=== PATIENT | male | born 1985 | race Caucasian/White ===

== ENCOUNTER 2023-03-11 21:04 | Observation (INO) | payer BC ==
[~2023-03-11 21:04] MED LIST: Iopamidol-370 76% 500 ML MDV (1 ML CHARGE) ONE
[2023-03-11] MEDS ORDERED: fentaNYL 50 mcg/mL 1 mL Vial ONE (21:07)
[2023-03-11 21:40] LABS: #Basophils 0.1 thou/uL (0.0-0.2); #Eosinphils 0.1 thou/uL (0.0-0.7); #Monocytes 0.9 thou/uL (0.11-0.59); #Neutrophils 5.8 thou/uL (1.40-6.50); %Basophils 0.9 % (0.0-1.0); %Eosinophils 0.5 % (0.0-10.0); %Lymphocytes 35.6 % (21.0-51.0); %Monocytes 7.7 % (0.0-10.0); %Neutrophils 52.1 % (42.0-75.0); Hematocrit 44.9 % (42.0-52.0); Hemoglobin 14.5 g/dL (14.0-18.0); Mean Corpuscular HGB CONC 32.3 g/dL (32.0-36.0); Mean Corpuscular Hemoglobin 31.3 pg (27.0-31.0); Mean Platelet Volume 9.8 fL (7.4-10.4); Platelet Count 261 10x3/uL (130-400); RBC Distribution Width 13.3 % (11.5-14.5); Red Blood Cell (RBC) Count 4.63 mill/uL (4.70-6.10); White Blood Cell (WBC) Count 11.1 10x3/uL (4.8-10.8)
[2023-03-11] MEDS ORDERED: Morphine 4 MG/ML VIAL ONE (21:45)
[2023-03-11 22:07] LABS: ALT (SGPT) 81 U/L (8-55); AST (SGOT) 101 U/L (5-34); Albumin 4.3 g/dL (3.5-5.0); Alkaline Phosphatase 67 U/L (40-110); Anion Gap 15 mmol/L (10-20); BUN (Urea Nitrogen) 8 mg/dL (8.9-20.6); Bilirubin, Total 0.7 mg/dL (0.2-1.2); Calc. Creatinine Clearance 0 mL/min (70-130); Calcium 8.8 mg/dL (7.8-10.44); Carbon Dioxide 20 mmol/L (22-29); Chloride 104 mmol/L (98-107); Estimated GFR 103; Globulin 2.7 g/dL (2.4-3.5); Glucose 103 mg/dL (70-105); Potassium 3.8 mmol/L (3.5-5.1); Sodium 135 mmol/L (136-145)
[2023-03-11 23:09] LABS: Acetaminophen Less than 10 mcg/mL (10.0-30.0); Alcohol 83.2 mg/dL (Less than 10); Salicylate Less than 8.0 mg/dL (15.0-30.0)
[2023-03-11] MEDS ORDERED: Dextrose 50% Abboject 50 ML SYRINGE SLOW IVP PRN (23:23)
[2023-03-11] MEDS ORDERED: Morphine 4 MG/ML VIAL SLOW IVP PRN (23:23)
[2023-03-11] MEDS ORDERED: hydrALAZINE 20 MG/ML VIAL SLOW IVP PRN (23:23)
[2023-03-11] MEDS ORDERED: Glucagon 1 MG/ML KIT IM PRN (23:23)
[2023-03-11] MEDS ORDERED: Dextrose 5% in Water 1,000 ML IV PRN (23:23)
[2023-03-11] MEDS ORDERED: Ondansetron PF 4 MG/2 ML Vial IVP PRN (23:23)
[2023-03-11] MEDS ORDERED: Ipratropium/Albuterol 3 ML NEB NEB PRN (23:23)
[2023-03-11] MEDS ORDERED: Ondansetron ODT 4 MG TAB PO PRN (23:23)
[2023-03-11] MEDS ORDERED: Cyclobenzaprine 10 MG TAB PO PRN (23:26)
[2023-03-11] MEDS ORDERED: Acetaminophen 500 MG TAB ONE (23:29)
[2023-03-11] MEDS ORDERED: traMADol HCl 50 MG TAB ONE (23:29)
[2023-03-11] MEDS ORDERED: Cyclobenzaprine 10 MG TAB ONE (23:29)
[2023-03-11] MEDS ORDERED: Sodium Chloride 0.9% 1,000 ML IV SCH (23:59)
[2023-03-12] MEDS ORDERED: Boostrix 0.5 ML (Tdap) VIAL (>/=7 yrs of age) ONE (00:09)
[2023-03-12] MEDS: traMADol HCl 50 MG TAB PO SCH ×4 (00:24→19:24)
[2023-03-12] MEDS: Acetaminophen 325 MG TAB PO SCH ×2 (00:24→05:07)
[2023-03-12 02:05] VITALS: BMI 28.1
[2023-03-12] MEDS: Morphine 2 MG/ML VIAL SLOW IVP PRN ×2 (02:26→09:39)
[2023-03-12 07:12] LABS: #Monocytes 0.6 thou/uL (0.11-0.59); #Neutrophils 6.7 thou/uL (1.40-6.50); %Basophils 0.3 % (0.0-1.0); %Eosinophils 0.1 % (0.0-10.0); %Lymphocytes 15.7 % (21.0-51.0); %Monocytes 6.8 % (0.0-10.0); %Neutrophils 76.4 % (42.0-75.0); Hematocrit 40.4 % (42.0-52.0); Hemoglobin 13.2 g/dL (14.0-18.0); Mean Corpuscular HGB CONC 32.7 g/dL (32.0-36.0); Mean Corpuscular Hemoglobin 31.3 pg (27.0-31.0); Mean Corpuscular Volume 95.7 fl (78.0-98.0); Mean Platelet Volume 9.9 fL (7.4-10.4); Platelet Count 211 10x3/uL (130-400); RBC Distribution Width 13.4 % (11.5-14.5); Red Blood Cell (RBC) Count 4.22 mill/uL (4.70-6.10); White Blood Cell (WBC) Count 8.7 10x3/uL (4.8-10.8)
[2023-03-12 07:35] LABS: Anion Gap 11 mmol/L (10-20); BUN (Urea Nitrogen) 9 mg/dL (8.9-20.6); Calc. Creatinine Clearance 157 mL/min (70-130); Calcium 8.4 mg/dL (7.8-10.44); Carbon Dioxide 21 mmol/L (22-29); Chloride 104 mmol/L (98-107); Estimated GFR 116; Glucose 93 mg/dL (70-105); Magnesium 1.5 mg/dL (1.6-2.6); Phosphorus 4.1 mg/dL (2.3-4.7); Potassium 4.3 mmol/L (3.5-5.1); Sodium 132 mmol/L (136-145)
[2023-03-12] MEDS: Famotidine 20 MG TAB PO SCH ×2 (09:40→20:36)
[2023-03-12] MEDS: Gabapentin 300 MG CAP PO SCH ×3 (09:40→20:36)
[2023-03-12] MEDS: Senokot S 8.6-50 MG TAB PO SCH ×2 (09:40→20:35)
[2023-03-12] MEDS: Polyethylene Glycol 3350 17 GM Packet PO SCH (09:41)
[2023-03-12] MEDS ORDERED: Acetaminophen 325 MG TAB PO SCH (11:30)
[2023-03-12] MEDS ORDERED: Ketorolac Tromethamine 30 MG/ML VIAL IVP SCH (11:45)
[2023-03-12] MEDS: Acetaminophen 500 MG TAB PO SCH ×2 (12:57→19:24)
[2023-03-12] MEDS ORDERED: Magnesium 2 GM/50 ML(in water) 4 GM in Premix Bag 1 BAG IVPB SCH (14:00)
[2023-03-12] MEDS: Ketorolac Tromethamine 30 MG/ML VIAL IVP SCH (19:26)
[2023-03-13] MEDS: Acetaminophen 500 MG TAB PO SCH ×3 (00:08→11:33)
[2023-03-13] MEDS: traMADol HCl 50 MG TAB PO SCH ×3 (00:08→11:33)
[2023-03-13] MEDS: Ketorolac Tromethamine 30 MG/ML VIAL IVP SCH ×2 (00:08→06:03)
[2023-03-13 07:08] LABS: #Basophils 0.1 thou/uL (0.0-0.2); #Eosinphils 0.1 thou/uL (0.0-0.7); #Monocytes 0.5 thou/uL (0.11-0.59); %Basophils 0.9 % (0.0-1.0); %Eosinophils 1.6 % (0.0-10.0); %Lymphocytes 15.9 % (21.0-51.0); %Monocytes 6.5 % (0.0-10.0); %Neutrophils 74.8 % (42.0-75.0); Hematocrit 41.1 % (42.0-52.0); Hemoglobin 13.4 g/dL (14.0-18.0); Mean Corpuscular HGB CONC 32.6 g/dL (32.0-36.0); Mean Corpuscular Hemoglobin 31.8 pg (27.0-31.0); Mean Corpuscular Volume 97.4 fl (78.0-98.0); Mean Platelet Volume 9.6 fL (7.4-10.4); Platelet Count 160 10x3/uL (130-400); RBC Distribution Width 13.1 % (11.5-14.5); Red Blood Cell (RBC) Count 4.22 mill/uL (4.70-6.10)
[2023-03-13 08:09] LABS: Anion Gap 12 mmol/L (10-20); BUN (Urea Nitrogen) 8 mg/dL (8.9-20.6); Calc. Creatinine Clearance 153 mL/min (70-130); Calcium 8.8 mg/dL (7.8-10.44); Carbon Dioxide 22 mmol/L (22-29); Chloride 101 mmol/L (98-107); Estimated GFR 116; Glucose 95 mg/dL (70-105); Magnesium 1.8 mg/dL (1.6-2.6); Phosphorus 2.9 mg/dL (2.3-4.7); Sodium 131 mmol/L (136-145)
[2023-03-13 08:52] VITALS: BP 126/84; TEMP 98.4
[2023-03-13] MEDS: Senokot S 8.6-50 MG TAB PO SCH (09:40)
[2023-03-13] MEDS: Gabapentin 300 MG CAP PO SCH (09:40)
[2023-03-13] MEDS: Polyethylene Glycol 3350 17 GM Packet PO SCH (09:40)
[2023-03-13] MEDS: Famotidine 20 MG TAB PO SCH (09:41)
[2023-03-13] MEDS ORDERED: Ibuprofen 200 MG TAB PO PRN (12:00)
== END 2023-03-13 14:25 | disposition home or self-care (01) ==
LOC: ERS 21:04 → SURG B 23:23
PROVIDERS: ADMIT Specialist; ATTEND Specialist
DX: S32.011A Stable burst fracture of first lumbar vertebra, initial encounter for closed fracture (principal); S36.116A Major laceration of liver, initial encounter; S27.322A Contusion of lung, bilateral, initial encounter; J98.4 Other disorders of lung; V49.40XA Driver injured in collision with unspecified motor vehicles in traffic accident, initial encounter
CPT/HCPCS: 36415; 70450; 71045; 71260; 72125; 74177; 80048; 80053; 80307; 83735; 84100; 85025; 86850; 86900; 86901; 90471; 90715; 93005; 96361; 96374; 96375; 96376; G0378; G0390; J1650; J1885; J2270; J2272; J3010; J3475; J7050; Q9967

== ENCOUNTER 2024-04-20 10:19 | Emergency (ER) | payer BC ==
[2024-04-20 10:44] LABS: #Basophils 0.07 10x3/uL (0.0-0.2); %Basophils 1.1 % (0.0-1.0); %Eosinophils 2.8 % (0.0-10.0); %Lymphocytes 35.6 % (21.0-51.0); %Monocytes 8.6 % (0.0-10.0); %Neutrophils 51.4 % (42.0-75.0); Hematocrit 41.9 % (42.0-52.0); Hemoglobin 13.9 g/dL (14.0-18.0); Mean Corpuscular HGB CONC 33.2 g/dL (32.0-36.0); Mean Corpuscular Hemoglobin 31.1 pg (27.0-31.0); Mean Corpuscular Volume 93.7 fL (78.0-98.0); Mean Platelet Volume 9.3 fL (7.4-10.4); Platelet Count 253 10x3/uL (130-400); RBC Distribution Width 12.1 % (11.5-14.5); Red Blood Cell (RBC) Count 4.47 mill/uL (4.70-6.10)
[2024-04-20 11:01] LABS: Prothrombin Time 13.1 sec (12.0-14.7)
[2024-04-20 11:02] LABS: PTT 34.9 sec (22.9-36.1)
[2024-04-20 11:13] LABS: ALT (SGPT) 22 U/L (8-55); AST (SGOT) 19 U/L (5-34); Albumin 4.4 g/dL (3.5-5.0); Alkaline Phosphatase 57 U/L (40-110); Anion Gap 12 mmol/L (10-20); BUN (Urea Nitrogen) 14 mg/dL (8.9-20.6); Bilirubin, Total 0.7 mg/dL (0.2-1.2); Calc. Creatinine Clearance 0 mL/min (70-130); Calcium 9.8 mg/dL (7.8-10.44); Carbon Dioxide 25 mmol/L (22-29); Chloride 108 mmol/L (98-107); Estimated GFR 107; Globulin 3.1 g/dL (2.4-3.5); Glucose 92 mg/dL (70-105); Potassium 4.7 mmol/L (3.5-5.1); Protein, Total 7.5 g/dL (6.0-8.3); Sodium 140 mmol/L (136-145)
[2024-04-20 11:36] LABS: Troponin I Less than 0.010 ng/mL (< 0.028)
== END 2024-04-20 13:30 | disposition home or self-care (01) ==
LOC: ERS 10:19
DX: R06.02 Shortness of breath (principal)
CPT/HCPCS: 36415; 71045; 80053; 83735; 84443; 84484; 85025; 85610; 85730; 93005